=== PATIENT | male | born 1940 | race Caucasian/White ===

== ENCOUNTER 2020-10-16 13:24 | Emergency (ER) | payer MEDICARE ==
[2020-10-16] MEDS ORDERED: ACETAMINOPHEN TAB 325 MG TAB PO STA (14:12)
--- NOTE | 2020-10-16 14:33 | ED ---
Fall HPI - General Chief Complaint: Fall Stated Complaint: Fall,head inj Time Seen by Provider: 10/16/20 13:30 Source: patient, family Mode of arrival: wheelchair - History of Present Illness Initial Comments: Patient is an 80-year-old male with past history of coronary artery disease and Plavix he presents emergency Department after he sustained a fall. Patient states he was attempting to sit on the toilet. He quickly got up from bed and ran into the bathroom. States he lost his balance and fell is his legs were not steady. He fell forward and hit his right side of his head on the door. Denies missing consciousness. His was able to get up and help him. He admits to a 6 out of 10 headache. Denies any visual changes. No neck pain. Denies any chest pain or shortness of breath. No abdominal pain. No pain in his extremities. No other alleviating, precipitating or modifying factors - Related Data Home Medications Medication Instructions Recorded Confirmed Aspirin EC [Ecotrin Low Dose] 81 mg PO DAILY 10/16/20 10/20/20 Cetirizine HCl [Zyrtec] 10 mg PO HS 10/16/20 10/20/20 Cholecalciferol [Vitamin D3 (25 1,000 unit PO HS 10/16/20 10/20/20 Mcg = 1000 Iu)] Clopidogrel Bisulfate [Plavix] 75 mg PO DAILY 10/16/20 10/20/20 Escitalopram [Lexapro] 10 mg PO HS 10/16/20 10/20/20 Insulin Degludec [Tresiba 36 unit SQ HS 10/16/20 10/20/20 Flextouch U-200] Insulin Lispro [humaLOG Kwikpen] See Protocol SQ AC-BID 10/16/20 10/20/20 Isosorbide Mononitrate ER [Imdur] 60 mg PO HS 10/16/20 10/20/20 Linagliptin [Tradjenta] 5 mg PO DAILY 10/16/20 10/20/20 Multivitamins, Thera [Multivitamin 1 tab PO DAILY 10/16/20 10/20/20 (formulary)] NIFEdipine XL [Procardia Xl] 60 mg PO HS 10/16/20 10/20/20 Vitamin E 400 unit PO HS 10/16/20 10/20/20 Atorvastatin [Lipitor] 40 mg PO DAILY 10/20/20 10/20/20 Allergies Allergy/AdvReac Type Severity Reaction Status Date / Time hydrocodone [From Vicodin] AdvReac Nausea & Verified 10/20/20 16:18 Vomiting & Diarrhea lisinopril AdvReac Nausea & Verified 10/20/20 16:18 Vomiting & Diarrhea Review of Systems ROS Statement: Those systems with pertinent positive or pertinent negative responses have been documented in the HPI. ROS Other: All systems not noted in ROS Statement are negative. Past Medical History Past Medical History: Coronary Artery Disease (CAD), Chest Pain / Angina, Diabe patricio Mellitus, Hyperlipidemia, Hypertension, Myocardial Infarction ([place]) History of Any Multi-Drug Resistant Organisms: None Reported Past Surgical History: Coronary Bypass/CABG, Heart Catheterization With Stent Past Psychological History: No Psychological Hx Reported Smoking Status: Never smoker Past Alcohol Use History: None Reported Past Drug Use History: None Reported General Exam Limitations: no limitations General appearance: alert, in no apparent distress Head exam: Present: normocephalic, normal inspection, other (bruise right forehead) Eye exam: Present: normal appearance, PERRL, EOMI. Absent: scleral icterus, conjunctival injection, periorbital swelling ENT exam: Present: normal exam, mucous membranes moist Neck exam: Present: normal inspection. Absent: tenderness, meningismus, lymphadenopathy Respiratory exam: Present: normal lung sounds bilaterally. Absent: respiratory distress, wheezes, rales, rhonchi, stridor Cardiovascular Exam: Present: regular rate, normal rhythm, normal heart sounds. Absent: systolic murmur, diastolic murmur, rubs, gallop, clicks GI/Abdominal exam: Present: soft, normal bowel sounds. Absent: distended, tenderness, guarding, rebound, rigid Extremities exam: Present: normal inspection, full ROM, normal capillary refill. Absent: tenderness, pedal edema, joint swelling, calf tenderness Back exam: Present: normal inspection Neurological exam: Present: alert, oriented X3, CN II-XII intact Psychiatric exam: Present: normal affect, normal mood Skin exam: Present: warm, dry, intact, normal color. Absent: rash Course Vital Signs 10/16/20 10/16/20 10/16/20 13:27 14:26 15:20 Temperature 97.8 F 97.9 F Pulse Rate 100 68 Respiratory 18 16 18 Rate Blood Pressure 132/81 141/65 O2 Sat by Pulse 97 98 Oximetry Medical Decision Making - Medical Decision Making Upon arrival the patient is placed in room 30. A thorough history and physical exam was performed. Patient was given Tylenol for pain control. CT of the patient's head was performed which demonstrates no acute fracture or dislocation in the cervical sign. No acute intracranial hemorrhage, mass effect or midline shift. Results are discussed with the patient. Patient will be discharged home at this time. Follow up with his primary care doctor to 4 days. Return to the emergency room for any new or worsening symptoms per patient was discharged home in stable condition Disposition Clinical Impression: Fall, Blunt head trauma Disposition: HOME SELF-CARE Condition: Stable Instructions (If sedation given, give patient instructions): Head Injury (ED) Is patient prescribed a controlled substance at d/c from ED?: No Referrals: Ute Rojas MD [Primary Care Provider] - 1-2 days Time of Disposition: 15:12
--- NOTE | 2020-10-16 14:56 | CT ---
EXAMINATION TYPE: CT brain angeloine adrian con DATE OF EXAM: 10/16/2020 COMPARISON: None HISTORY: Fall, head injury, trauma and pain CT DLP: 1318 mGycm Automated exposure control for dose reduction was used. TECHNIQUE: CT scan of the head and cervical spine are performed without contrast. FINDINGS: There is no acute intracranial hemorrhage, mass effect, or midline shift identified. The ventricles and sulci are within normal limits in size. Periventricular white matter shows patchy low attenuation. There is cortical atrophy. The globes are intact and the visualized sinuses are remark able for inflammatory change in the ethmoid air cells. There are cerebral vascular calcifications pre sent. Cervical spine is visualized in its entirety from C1 through upper thoracic levels and demonstrates m ildly irregular alignment without evidence of acute fracture or dislocation. There is multilevel fac et arthropathy change. Anterolisthesis grade 1 C4-5, retrolisthesis grade 1 C3-4, there is a spinal c urvature present. Multilevel spondylosis with loss of disc height at intervertebral levels is noted. There is multilevel foraminal encroachment. Prevertebral soft tissue appears within normal limits. T he C1-C2 articulation is unremarkable. IMPRESSION: 1. There is no acute fracture or dislocation evident in the cervical spine. 2. No acute intracranial hemorrhage, mass effect, or midline shift is seen.
[2020-10-16 15:23] VITALS: BP 141/65; PULSE 68; RESP 18; TEMP 97.9
== END 2020-10-16 15:20 | disposition home or self-care (01) ==
LOC: EC 13:24
DX: S09.90XA Unspecified injury of head, initial encounter (principal); I25.119 Atherosclerotic heart disease of native coronary artery with unspecified angina pectoris; E11.9 Type 2 diabetes mellitus without complications; E78.5 Hyperlipidemia, unspecified; I10 Essential (primary) hypertension; I25.2 Old myocardial infarction; Z79.4 Long term (current) use of insulin; Z79.82 Long term (current) use of aspirin; Z79.899 Other long term (current) drug therapy; Z88.5 Allergy status to narcotic agent; Z88.8 Allergy status to other drugs, medicaments and biological substances; Z95.5 Presence of coronary angioplasty implant and graft; Z95.1 Presence of aortocoronary bypass graft; W18.12XA Fall from or off toilet with subsequent striking against object, initial encounter; Y92.002 Bathroom of unspecified non-institutional (private) residence as the place of occurrence of the external cause
CPT/HCPCS: 70450; 72125; 99284

== ENCOUNTER 2020-10-20 14:07 | Emergency (ER) | payer MEDICARE ==
--- NOTE | 2020-10-20 14:58 | ED ---
General Adult HPI - General Chief complaint: Chest Pain Stated complaint: chest/rib pain/SOB Time Seen by Provider: 10/20/20 14:18 Source: patient, RN notes reviewed, old records reviewed Mode of arrival: ambulatory Limitations: no limitations - History of Present Illness Initial comments: 80-year-old male presenting for evaluation of right-sided chest pain status post fall. Patient states that 4 days prior he had fall with head trauma. He had taken to the emergency department for evaluation of his head trauma which was reported as negative however he developed some right-sided chest pain worse with cough, worse with movement. He believes he may have injured the right side of his chest. No difficulty breathing. No cough or fever. No central chest pain however he states that approximately one month ago he did have a heart attack at outside hospital requiring heart catheterization. He has previous remote history of coronary artery bypass graft. - Related Data Home Medications Medication Instructions Recorded Confirmed Aspirin EC [Ecotrin Low Dose] 81 mg PO DAILY 10/16/20 10/16/20 Cetirizine HCl [Zyrtec] 10 mg PO HS 10/16/20 10/16/20 Cholecalciferol [Vitamin D3 (25 1,000 unit PO HS 10/16/20 10/16/20 Mcg = 1000 Iu)] Clopidogrel Bisulfate [Plavix] 75 mg PO DAILY 10/16/20 10/16/20 Escitalopram [Lexapro] 10 mg PO HS 10/16/20 10/16/20 Insulin Degludec [Tresiba 36 unit SQ HS 10/16/20 10/16/20 Flextouch U-200] Insulin Lispro [humaLOG Kwikpen] 7 - 14 unit SQ BID 10/16/20 10/16/20 Isosorbide Mononitrate ER [Imdur] 60 mg PO HS 10/16/20 10/16/20 Linagliptin [Tradjenta] 5 mg PO DAILY 10/16/20 10/16/20 Multivitamins, Thera [Multivitamin 1 tab PO DAILY 10/16/20 10/16/20 (formulary)] NIFEdipine XL [Procardia Xl] 60 mg PO HS 10/16/20 10/16/20 Vitamin E 400 unit PO HS 10/16/20 10/16/20 Atorvastatin [Lipitor] 40 mg PO DAILY 10/20/20 10/20/20 Allergies Allergy/AdvReac Type Severity Reaction Status Date / Time hydrocodone [From Vicodin] AdvReac Nausea & Verified 10/20/20 16:18 Vomiting & Diarrhea lisinopril AdvReac Nausea & Verified 10/20/20 16:18 Vomiting & Diarrhea Review of Systems ROS Statement: Those systems with pertinent positive or pertinent negative responses have been documented in the HPI. ROS Other: All systems not noted in ROS Statement are negative. Past Medical History Past Medical History: Coronary Artery Disease (CAD), Chest Pain / Angina, Diabetes Mellitus, Hyperlipidemia, Hypertension, Myocardial Infarction ([place]) History of Any Multi-Drug Resistant Organisms: None Reported Past Surgical History: Coronary Bypass/CABG, Heart Catheterization With Stent Past Psychological History: No Psychological Hx Reported Smoking Status: Never smoker Past Alcohol Use History: None Reported Past Drug Use History: None Reported General Exam Limitations: no limitations General appearance: alert, in no apparent distress Head exam: Present: atraumatic, normocephalic Eye exam: Present: normal appearance, PERRL ENT exam: Present: normal exam Neck exam: Present: normal inspection. Absent: tenderness, meningismus Respiratory exam: Present: chest wall tenderness. Absent: respiratory distress Cardiovascular Exam: Present: regular rate, irregular rhythm GI/Abdominal exam: Present: soft. Absent: distended, tenderness, guarding, rebound Extremities exam: Present: normal inspection, normal capillary refill. Absent: pedal edema Neurological exam: Present: alert, oriented X3, CN II-XII intact. Absent: motor sensory deficit Psychiatric exam: Present: normal affect, normal mood Skin exam: Present: warm, dry, intact. Absent: cyanosis, diaphoretic Course Vital Signs 10/20/20 10/20/20 10/20/20 14:13 15:30 16:00 Temperature 98.6 F Pulse Rate 91 46 L 52 L Respiratory 20 19 17 Rate Blood Pressure 154/82 155/70 155/70 O2 Sat by Pulse 98 96 96 Oximetry - Reevaluation(s) Reevaluation #1: 10/20/20 16:21 I discussed case with Dr. Erick long for cardiology, including EKG findings, elevated troponin, and presentation. Java the troponin is likely status post AK and not related to an acute ischemic event. I agree with this. We did discuss the heart block and patient's need for follow-up with his primary grievance and appeals specialist. Patient stable for discharge. Medical Decision Making - Medical Decision Making 80-year-old male presenting for evaluation of right-sided chest pain status post fall. Patient has right-sided chest pain which is reproducible. There is no external signs of trauma. No crepitus. He has good air entry bilaterally. Patient is noted to be an abnormal heart rhythm, EKG is obtained and heart rhy thm is consistent with second-degree AV block type I. Patient has normal CBC, CMP showing an elevated blood glucose but other hartman normal. He has elevated troponin of 0.333. This is likely secondary to recent heart catheterization. Patient has no typical chest pain features. My initial plan was to admit this patient awaiting serial cardiac enzymes, as well as telemetry. I did discuss case with Dr. Erick long for cardiology. Java that patient should continue to follow up as an outpatient with his grievance and appeals specialist. Patient is agreeable and eager for discharge. - Lab Data Result diagrams: 10/20/20 14:42 10/20/20 14:42 Lab Results 10/20/20 10/20/20 10/20/20 Range/Units 14:42 14:42 14:42 WBC 8.6 (3.8-10.6) k/uL RBC 4.57 (4.30-5.90) m/uL Hgb 13.3 (13.0-17.5) gm/dL Hct 40.8 (39.0-53.0) % MCV 89.3 (80.0-100.0) fL MCH 29.1 (25.0-35.0) pg MCHC 32.6 (31.0-37.0) g/dL RDW 12.6 (11.5-15.5) % Plt Count 174 (150-450) k/uL MPV 8.0 Neutrophils % 70 % Lymphocytes % 21 % Monocytes % 5 % Eosinophils % 2 % Basophils % 0 % Neutrophils # 5.9 (1.3-7.7) k/uL Lymphocytes # 1.8 (1.0-4.8) k/uL Monocytes # 0.5 (0-1.0) k/uL Eosinophils # 0.2 (0-0.7) k/uL Basophils # 0.0 (0-0.2) k/uL PT 10.1 (9.0-12.0) sec INR 1.0 (<1.2) APTT 22.2 (22.0-30.0) sec Sodium 136 L (137-145) mmol/L Potassium 4.0 (3.5-5.1) mmol/L Chloride 104 (98-107) mmol/L Carbon Dioxide 28 (22-30) mmol/L Anion Gap 4 mmol/L BUN 17 (9-20) mg/dL Creatinine 0.87 (0.66-1.25) mg/dL Est GFR (CKD-EPI)AfAm >90 (>60 ml/min/1.73 sqM) Est GFR (CKD-EPI)NonAf 82 (>60 ml/min/1.73 sqM) Glucose 291 H (74-99) mg/dL Calcium 8.9 (8.4-10.2) mg/dL Magnesium 1.8 (1.6-2.3) mg/dL Total Bilirubin 0.6 (0.2-1.3) mg/dL AST 20 (17-59) U/L ALT 13 (4-49) U/L Alkaline Phosphatase 100 (38-126) U/L Troponin I (0.000-0.034) ng/mL Total Protein 6.5 (6.3-8.2) g/dL Albumin 3.6 (3.5-5.0) g/dL 10/20/20 Range/Units 14:42 WBC (3.8-10.6) k/uL RBC (4.30-5.90) m/uL Hgb (13.0-17.5) gm/dL Hct (39.0-53.0) % MCV (80.0-100.0) fL MCH (25.0-35.0) pg MCHC (31.0-37.0) g/dL RDW (11.5-15.5) % Plt Count (150-450) k/uL MPV Neutrophils % % Lymphocytes % % Monocytes % % Eosinophils % % Basophils % % Neutrophils # (1.3-7.7) k/uL Lymphocytes # (1.0-4.8) k/uL Monocytes # (0-1.0) k/uL Eosinophils # (0-0.7) k/uL Basophils # (0-0.2) k/uL PT (9.0-12.0) sec INR (<1.2) APTT (22.0-30.0) sec Sodium (137-145) mmol/L Potassium (3.5-5.1) mmol/L Chloride (98-107) mmol/L Carbon Dioxide (22-30) mmol/L Anion Gap mmol/L BUN (9-20) mg/dL Creatinine (0.66-1.25) mg/dL Est GFR (CKD-EPI)AfAm (>60 ml/min/1.73 sqM) Est GFR (CKD-EPI)NonAf (>60 ml/min/1.73 sqM) Glucose (74-99) mg/dL Calcium (8.4-10.2) mg/dL Magnesium (1.6-2.3) mg/dL Total Bilirubin (0.2-1.3) mg/dL AST (17-59) U/L ALT (4-49) U/L Alkaline Phosphatase (38-126) U/L Troponin I 0.333 H* (0.000-0.034) ng/mL Total Protein (6.3-8.2) g/dL Albumin (3.5-5.0) g/dL Disposition Clinical Impression: Fall, Chest wall contusion, Second degree AV block, Mobitz type I Disposition: HOME SELF-CARE Condition: Fair Instructions (If sedation given, give patient instructions): Heart Block (ED), Rib Contusion (ED) Additional Instructions: Please follow up with her grievance and appeals specialist regarding your abnormal heart rhythm. Is patient prescribed a controlled substance at d/c from ED?: No Referrals: Ute Rojas MD [Primary Care Provider] - 1-2 days Time of Disposition: 16:25
--- NOTE | 2020-10-20 15:06 | XR ---
EXAMINATION TYPE: XR chest 2V DATE OF EXAM: 10/20/2020 COMPARISON: NONE HISTORY: Right-sided rib pain and shortness of breath status post fall 3 days ago. TECHNIQUE: Frontal and lateral views of the chest are obtained. FINDINGS: There is mild left basilar opacity. No pleural effusion, or pneumothorax seen. The cardia c silhouette size is mildly enlarged. CABG noted. The osseous structures are intact. IMPRESSION: Mild left basilar opacity, probably atelectasis. Developing infiltrate better excluded clinically.
[2020-10-20 15:12] LABS: Basophils % (A) 0 %; Eosinophils # (A) 0.2 k/uL (0-0.7); Eosinophils % (A) 2 %; HCT 40.8 % (39.0-53.0); HGB 13.3 gm/dL (13.0-17.5); Lymphocytes # (A) 1.8 k/uL (1.0-4.8); Lymphocytes % (A) 21 %; MCH 29.1 pg (25.0-35.0); MCHC 32.6 g/dL (31.0-37.0); MCV 89.3 fL (80.0-100.0); Monocytes # (A) 0.5 k/uL (0-1.0); Monocytes % (A) 5 %; Neutrophils # (A) 5.9 k/uL (1.3-7.7); Neutrophils % (A) 70 %; Platelet Count 174 k/uL (150-450); RBC 4.57 m/uL (4.30-5.90); RDW 12.6 % (11.5-15.5); WBC 8.6 k/uL (3.8-10.6)
[2020-10-20 15:21] LABS: ALT 13 U/L (4-49); AST 20 U/L (17-59); African American GFR (CKD) >90 (>60 ml/min/1.73 sqM); Albumin 3.6 g/dL (3.5-5.0); Alkaline Phosphatase 100 U/L (38-126); Anion Gap 4 mmol/L; Blood Urea Nitrogen 17 mg/dL (9-20); Calcium 8.9 mg/dL (8.4-10.2); Carbon Dioxide 28 mmol/L (22-30); Chloride 104 mmol/L (98-107); Glucose 291 mg/dL (74-99); Magnesium 1.8 mg/dL (1.6-2.3); Non-African American GFR(CKD) 82 (>60 ml/min/1.73 sqM); Sodium 136 mmol/L (137-145); Total Bilirubin 0.6 mg/dL (0.2-1.3); Total Protein 6.5 g/dL (6.3-8.2)
[2020-10-20 15:23] LABS: Partial Thromboplastin Time 22.2 sec (22.0-30.0); Prothrombin Time 10.1 sec (9.0-12.0)
[2020-10-20] MEDS ORDERED: ASPIRIN 325 MG TAB PO STA (16:00)
[2020-10-20] MEDS ORDERED: HEPARIN SODIUM,PORCINE 5,000 UNIT/ML 1 ML VIAL IV PRN (16:01)
[2020-10-20] MEDS ORDERED: HEPARIN SODIUM,PORCINE 5,000 UNIT/ML 1 ML VIAL IV ONE (16:01)
[2020-10-20 16:09] VITALS: BP 155/70; PULSE 52; RESP 17
[2020-10-20] MEDS ORDERED: HEPARIN SOD,PORK IN 0.45% NACL 25,000 UNIT in 0.45% NACL 1 250ML.BAG IV SCH (16:15)
[2020-10-20 16:46] VITALS: TEMP 97.8
== END 2020-10-20 16:46 | disposition home or self-care (01) ==
LOC: EC 14:07
DX: I44.1 Atrioventricular block, second degree (principal); S20.219A Contusion of unspecified front wall of thorax, initial encounter; I25.2 Old myocardial infarction; I25.119 Atherosclerotic heart disease of native coronary artery with unspecified angina pectoris; E11.9 Type 2 diabetes mellitus without complications; R77.8 Other specified abnormalities of plasma proteins; I10 Essential (primary) hypertension; E78.5 Hyperlipidemia, unspecified; Z79.4 Long term (current) use of insulin; Z79.82 Long term (current) use of aspirin; Z79.899 Other long term (current) drug therapy; Z88.5 Allergy status to narcotic agent; Z88.8 Allergy status to other drugs, medicaments and biological substances; Z95.1 Presence of aortocoronary bypass graft; Z95.5 Presence of coronary angioplasty implant and graft; W19.XXXA Unspecified fall, initial encounter; Y92.009 Unspecified place in unspecified non-institutional (private) residence as the place of occurrence of the external cause
CPT/HCPCS: 36415; 71046; 80053; 83735; 84484; 85025; 85610; 85730; 93005; 99285